=== PATIENT | female | born 1950 | race Asian ===

== ENCOUNTER → 2022-03-12 | Outpatient (REF) | payer MEDICARE | LOC: M LAB REF 12:39 | PROVIDERS: ATTEND Internal Medicine | DX: M10.9 Gout, unspecified (principal) ==

== ENCOUNTER → 2022-04-15 | Outpatient (CLI) | payer MEDICARE, SELFPAY ==
[~2022-04-15] MED LIST: ATOR40TA75 PO; HYDR-3490 PO; LISI10TA22 PO
== END ==
LOC: EDSEX 09:55 → M LABSMTC 11:10
PROVIDERS: ATTEND Anesthesiology
DX: Z01.812 Encounter for preprocedural laboratory examination (principal)

== ENCOUNTER → 2022-04-17 | Day surgery (SDC) | payer MEDICARE ==
[~2022-04-17] VITALS: Ht 162.6 cm; Wt 75.5 kg
[~2022-04-17] MED LIST changes: +LIDOCAINE 2% 100MG/5ML SDV (FOR ANES.) As Ordered ONE; +NS 1,000 ML IV ONE; +propofoL 200 MG/20 ML VIAL As Ordered ONE
[2022-04-17 12:38] VITALS: BP 140/84
== END | disposition home or self-care (01) ==
LOC: EDSEX → M OPP 09:49 → EDUNIT# 12:15
PROVIDERS: ATTEND Internal Medicine Gastroenterology
DX: Z12.11 Encounter for screening for malignant neoplasm of colon (principal); K63.5 Polyp of colon; K64.0 First degree hemorrhoids; K22.89 Other specified disease of esophagus; K22.70 Barrett's esophagus without dysplasia; K44.9 Diaphragmatic hernia without obstruction or gangrene; I10 Essential (primary) hypertension; E78.00 Pure hypercholesterolemia, unspecified; Z79.02 Long term (current) use of antithrombotics/antiplatelets; Z79.899 Other long term (current) drug therapy

== ENCOUNTER → 2022-09-16 | Outpatient (REF) | payer MEDICARE ==
[~2022-09-16] MED LIST changes: -LIDOCAINE 2% 100MG/5ML SDV (FOR ANES.) As Ordered ONE; -NS 1,000 ML IV ONE; -propofoL 200 MG/20 ML VIAL As Ordered ONE
== END ==
LOC: M LAB REF 13:54
PROVIDERS: ATTEND Internal Medicine
DX: B96.81 Helicobacter pylori [H. pylori] as the cause of diseases classified elsewhere (principal)

== ENCOUNTER → 2022-12-09 | Outpatient (REF) | payer MEDICARE | LOC: M LAB REF 12:23 | PROVIDERS: ATTEND Internal Medicine | DX: Z86.19 Personal history of other infectious and parasitic diseases (principal); B96.81 Helicobacter pylori [H. pylori] as the cause of diseases classified elsewhere; A04.8 Other specified bacterial intestinal infections ==

== ENCOUNTER 2023-10-14 12:06 | Emergency (ER) | payer MEDICARE ==
[~2023-10-14] VITALS: Ht 162.6 cm; Wt 63.6 kg
[2023-10-14] MEDS: PERCOCET 5MG/325MG TAB PO ONE (14:05)
[2023-10-14] MEDS: BOOSTRIX VACCINE (TETANUS/DIPHTH/ACEL. PERTUSSIS) 0.5ML SYR IM ONE (14:07)
[2023-10-14] MEDS ORDERED: wheelchair (14:46)
[2023-10-14] MEDS ORDERED: PERC5TAB12 PO (14:46)
[2023-10-14 15:04] VITALS: BP 164/96; TEMP 98.4; O2SAT 97
== END 2023-10-14 15:06 | disposition home or self-care (01) ==
LOC: M ED 12:06
DX: S92.011A Displaced fracture of body of right calcaneus, initial encounter for closed fracture (principal); W11.XXXA Fall on and from ladder, initial encounter; I10 Essential (primary) hypertension; Y92.008 Other place in unspecified non-institutional (private) residence as the place of occurrence of the external cause; Y93.89 Activity, other specified; Y99.9 Unspecified external cause status; Z79.02 Long term (current) use of antithrombotics/antiplatelets; Z79.811 Long term (current) use of aromatase inhibitors; Z79.899 Other long term (current) drug therapy; Z23 Encounter for immunization

== ENCOUNTER → 2023-10-16 | Outpatient (CLI) | payer MEDICARE ==
[~2023-10-16] MED LIST changes: +ACET650T15 PO; +ASPI81CH33 PO; +DOXY-440 PO; +IBUP80TA PO; +PERC5TAB12 PO; +wheelchair
== END ==
LOC: M SOG 08:57
PROVIDERS: ATTEND Orthopaedic Surgery
DX: S92.041A Displaced other fracture of tuberosity of right calcaneus, initial encounter for closed fracture (principal); Y93.9 Activity, unspecified; Y92.9 Unspecified place or not applicable

== ENCOUNTER 2023-10-18 17:20 | Emergency (ER) | payer MEDICARE ==
[~2023-10-18 17:20] MED LIST changes: -ACET650T15 PO; -ASPI81CH33 PO; -DOXY-440 PO; -IBUP80TA PO
[2023-10-18] MEDS ORDERED: IBUP80TA PO (17:45)
[2023-10-18] MEDS ORDERED: ASPI81CH33 PO (17:45)
[2023-10-18] MEDS ORDERED: ACET650T15 PO (17:45)
[2023-10-18 19:10] LABS: BASO # 0.1 10^3/uL (0.0-0.2); BASO % 0.6 % (0.0-1.0); EOS # 0.1 10^3/uL (0.0-0.5); EOS % 1.3 % (0.0-3.0); HEMATOCRIT 38.7 % (42.0-52.0); HEMOGLOBIN 13.4 g/dl (13.5-17.5); LYMPH # 1.9 10^3/uL (1.5-5.0); LYMPH % 17.6 % (24.0-44.0); MEAN CORPUSCULAR HEMOGLOBIN 31.2 pg (27.0-33.0); MEAN CORPUSCULAR HGB CONC 34.6 g/dl (32.0-36.5); MONO # 1.3 10^3/uL (0.0-0.8); MONO % 12.3 % (2.0-8.0); NEUTROPHILS # 7.1 10^3/uL (1.5-8.5); NEUTROPHILS % 67.4 % (36.0-66.0); PLATELET COUNT, AUTOMATED 284 10^3/uL (150-450); WHITE BLOOD COUNT 10.6 10^3/uL (4.0-10.0)
[2023-10-18 19:14] LABS: ERYTHROCYTE SEDIMENTATION RATE 25 mm/hr (0-20)
[2023-10-18] MEDS: CEFEPIME HCL 2 GM in D5W MINI-BAG PLUS 50 ML IV ONE (19:15)
[2023-10-18 19:35] LABS: INR 0.97; PROTHROMBIN TIME 12.6 SECONDS (12.5-14.5)
[2023-10-18 19:37] LABS: CK-MB VALUE MASS 5.6 NG/ML (<3.6)
[2023-10-18 19:38] LABS: C REACTIVE PROTEIN QUANTITATIV < 0.40 MG/DL (<1.0)
[2023-10-18 19:39] LABS: ALBUMIN 4.1 G/DL (3.2-5.2); ALKALINE PHOSPHATASE 43 U/L (46-116); ALT/SGPT 32 U/L (7.0-40); AST/SGOT 42 U/L (<34); BILIRUBIN,DIRECT 0.5 MG/DL (<0.4); BILIRUBIN,TOTAL 1.5 MG/DL (0.3-1.2); BLOOD UREA NITROGEN 15 MG/DL (9-23); CALCIUM LEVEL 9.4 MG/DL (8.3-10.6); CARBON DIOXIDE LEVEL 27 MMOL/L (20-31); CHLORIDE LEVEL 97 MMOL/L (98-107); CREATININE FOR GFR 0.89 MG/DL (0.70-1.30); GLOMERULAR FILTRATION RATE > 60.0 (>42); GLUCOSE, FASTING 92 MG/DL (74-106); POTASSIUM SERUM 3.9 MMOL/L (3.5-5.1); SODIUM LEVEL 129 MMOL/L (136-145); TOTAL PROTEIN 7.9 G/DL (5.7-8.2)
[2023-10-18 19:46] LABS: CPK CREATINE PHOSPHOKINASE 583 U/L (46-171); MB/CK RELATIVE INDEX 0.96 (< OR =4); PROCALCITONIN 0.05 ng/ml
[2023-10-18] MEDS: PANTOPRAZOLE 40MG TAB (PROTONIX) PO ONE (19:46)
[2023-10-18] MEDS ORDERED: ISOVUE-370 76% 100ML VIAL As Ordered ONE (19:59)
[2023-10-18 21:24] VITALS: BP 174/87
[2023-10-18] MEDS: NEOSPORIN OINT 0.9 GM PKT TOP ONE (21:53)
[2023-10-18] MEDS ORDERED: DOXY-440 PO (21:54)
[2023-10-18 22:13] VITALS: BP 157/91; TEMP 98.6; O2SAT 98
== END 2023-10-18 22:15 | disposition home or self-care (01) ==
LOC: M ED 17:20
DX: L03.115 Cellulitis of right lower limb (principal); S92.061A Displaced intraarticular fracture of right calcaneus, initial encounter for closed fracture; I45.81 Long QT syndrome; I10 Essential (primary) hypertension; E78.5 Hyperlipidemia, unspecified; Y92.9 Unspecified place or not applicable; Y93.89 Activity, other specified; Y99.9 Unspecified external cause status; Z79.82 Long term (current) use of aspirin; Z79.811 Long term (current) use of aromatase inhibitors; Z79.899 Other long term (current) drug therapy
CPT/HCPCS: 71111; 73701; 80048; 80076; 82550; 82553; 83605; 84145; 84484; 85025; 85610; 85652; 85730; 86140; 93005; 93041; 93971; 94760; 96365; 96366; 99285; J0692; Q9967